=== PATIENT | male | born 2000 | race Two or more races ===

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

== ENCOUNTER 2020-06-11 06:09 | Emergency (ER) | payer SELFPAY ==
[~2020-06-11] VITALS: Ht 165.1 cm; Wt 64.0 kg
[2020-06-11 06:10] VITALS: BP 118/82
--- NOTE | 2020-06-11 06:16 | NUR ---
pt BIB law enforcement. Released Today but was placed on a legal due to stating he wanted to harm himself. pt states that he said that because he wanted a phone call bu is no longer suicidal. He had thought that talking to the psych nurse would help him get a phone call. pt laying on rich, appears comfortable, changed into gown, si precautions in place. wctm.
== END 2020-06-11 06:47 | disposition home or self-care (01) ==
LOC: ED 06:39
DX: F11.10 Opioid abuse, uncomplicated (principal); F17.200 Nicotine dependence, unspecified, uncomplicated
CPT/HCPCS: 99283

== ENCOUNTER 2021-04-19 00:15 | Emergency (ER) | payer MEDICAID ==
[~2021-04-19] VITALS: Ht 165.1 cm; Wt 77.6 kg
--- NOTE | 2021-04-19 00:26 | NUR ---
PT CAME INTO ED TONIGHT DUE TO HIVES/RASH ON LOWER FEET AND GROIN AREA, PT REPORTS IT HAS BEEN PRESENT X1WEEK. RED AND RAISED, REPORTS ITCHINESS. WHILE RN IN ROOM PT PERIODICALLY FALLING ASLEEP AT THIS TIME. PT BED IN LOWEST, RAILS ENGAGED, CALL LIGHT ON LAP, PLACED ON SPO2/BP MONITORING AT THIS TIME. WCTM.
[2021-04-19] MEDS ORDERED: DIPHENHYDRAMINE 25 MG CAPSULE ONE (01:16)
[2021-04-19 01:26] VITALS: BP 124/88
--- NOTE | 2021-04-19 01:26 | NUR ---
Patient given discharge instructions and they have confirmed that they understand the instructions. Patient ambulatory with steady gait. NAD, all questions answered appropriately, denies additional needs at this time. No personal belongings left in room after discharge.
[2021-04-19] MEDS ORDERED: DIPHENHYDRAMINE 25 MG CAPSULE PO ONE (01:30)
== END 2021-04-19 01:28 | disposition home or self-care (01) ==
LOC: ED 01:00
DX: L20.9 Atopic dermatitis, unspecified (principal); B86 Scabies
CPT/HCPCS: 99283; Q0163